=== PATIENT | female | born 1985 | race Caucasian/White ===

== ENCOUNTER 2018-05-26 08:33 | Emergency (ER) | payer SELFPAY ==
[~2018-05-26] VITALS: Ht 162.6 cm; Wt 60.0 kg
[2018-05-26] MEDS ORDERED: BACITRACIN ZINC OINT UDPKT TOP ONE (10:15)
[2018-05-26 11:50] VITALS: BP 101/66
== END 2018-05-26 12:58 | disposition home or self-care (01) ==
LOC: ER 08:33
DX: S80.211A Abrasion, right knee, initial encounter (principal); V02.99XA Pedestrian with other conveyance injured in collision with two- or three-wheeled motor vehicle, unspecified whether traffic or nontraffic accident, initial encounter; Y93.89 Activity, other specified; Y92.89 Other specified places as the place of occurrence of the external cause; Y99.8 Other external cause status
CPT/HCPCS: 81025; 99283